=== PATIENT | male | born 1950 | race Caucasian/White ===

== ENCOUNTER 2021-10-05 08:20 | Outpatient (CLI) | payer OTHER ==
--- NOTE | 2021-10-05 15:31 | Ultrasound Report ---
PROCEDURE: Aorta Screening INDICATIONS: HISTORY OF TOBACCO USE TECHNIQUE: Real time scanning was performed of the aorta and iliac arteries, with image documentatio n. COMPARISON: None FINDINGS: Aorta: Proximal aortic diameter measures 2.7 x 2.7 cm. Mid-aorta measures 2.0 x 2.1 cm. Distal aor tic diameter is 1.8 x 1.9 cm. Iliac arteries: Right common iliac artery measures 1.2 x 1.2 cm. Left common iliac artery measures 1.2 x 1.2 cm. Miscellaneous: Mild right renal hydronephrosis. IMPRESSION: No aortic aneurysmal dilation. Mild right renal hydronephrosis. Reviewed by: Delia Blake MD on 10/05/2021 3:30 PM PDT Approved by: Delia Blake MD on 10/05/2021 3:30 PM PDT Station ID: [id number]
== END 2021-10-05 08:21 | disposition home or self-care (01) ==
LOC: DI 08:20
PROVIDERS: ATTEND Internal Medicine
DX: Z13.6 Encounter for screening for cardiovascular disorders (principal); Z87.891 Personal history of nicotine dependence; N13.30 Unspecified hydronephrosis

== ENCOUNTER 2022-10-21 12:55 | Day surgery (SDC) | payer OTHER ==
[2022-10-21] MEDS ORDERED: CEFAZOLIN 2G/50ML 0.9% NS 2 GM/50 ML BAG IV ONE (12:57)
[2022-10-21] MEDS ORDERED: LACTATED RINGERS 1,000 ML IV ONE ×2 (13:22→17:03)
[2022-10-21] MEDS ORDERED: BUPIVACAINE 0.25% PF 30 ML VIAL ONE ×2 (13:33→16:00)
[2022-10-21] MEDS ORDERED: LIDOCAINE MPF 2%-EPI 1:200000 20 ML VIAL ONE (13:33)
--- NOTE | 2022-10-21 13:51 | ANESTHESIA ---
Pre-Anesthesia VS, & Labs - Diagnosis right inguinal hernia - Procedure right hernia repair Vital Signs: Temp Pulse Resp BP Pulse Ox O2 Flow Rate 36.6 C 98 17 174/99 H 98 10/21/22 13:20 10/21/22 13:20 10/21/22 13:20 10/21/22 13:20 10/21/22 13:20 Height: 5 ft 6 in Weight (kg): 72 kg Body Mass Index: 25.6 BMI Classification: Overweight - NPO >8 hours Home Medications and Allergies Home Medications: Ambulatory Orders Tamsulosin [Flomax] 0.4 mg PO DAILY 10/19/22 Trazodone HCl 150 mg PO QPM PRN 10/19/22 hydroCHLOROthiazide [Hydrodiuril] 25 mg PO DAILY 10/19/22 Gabapentin [Neurontin] 900 mg PO DAILY 10/20/22 Tamsulosin [Flomax] 0.4 mg PO DAILY 10/19/22 Trazodone HCl 150 mg PO QPM PRN 10/19/22 hydroCHLOROthiazide [Hydrodiuril] 25 mg PO DAILY 10/19/22 Gabapentin [Neurontin] 900 mg PO DAILY 10/20/22 Allergies/Adverse Reactions: Allergies Allergy/AdvReac Type Severity Reaction Status Date / Time lisinopril AdvReac Unknown Verified 10/21/22 13:18 Anes History & Medical History - Anesthetic History Anesthesia Complications: reports: No previous complications - Medical History Cardiovascular: reports: None Pulmonary: reports: Sleep apnea, CPAP use Gastrointestinal: reports: Colon polyps, Hemorrhoids Urinary: reports: Benign prostate hypertrophy, Nocturia Musculoskeletal: reports: None Endocrine/Autoimmune: reports: None Skin: reports: None Smoking Status: Never smoker History of Cancer?: No - Surgical History General: reports: Colonoscopy, Other Eyes Ears Nose Throat (EENT): reports: Tonsil/Adenoidectomy Orthopedic: reports: Rotator cuff repair, Spine surgery Exam General: Alert, Oriented x3 Dental: WNL Mouth Opening: Greater than 4 Fingerbreadths Neck Mobility: Normal Mallampati classification: II Respiratory: Lungs clear Cardiovascular: Regular rate Plan Anesthesia Type: General, MAC, Total IV Consent for Procedure(s) Verified and Reviewed: Yes Code Status: Attempt Resuscitation ASA classification: 2-Mild systemic disease Is this case an emergency?: No
[2022-10-21] MEDS ORDERED: MORPHINE 2 MG/ML CARPUJECT IVP PRN (13:57)
[2022-10-21] MEDS ORDERED: ONDANSETRON 4 MG/2 ML VIAL IVP PRN (13:57)
[2022-10-21] MEDS ORDERED: METOCLOPRAMIDE 10 MG/2 ML VIAL IVP PRN (13:57)
[2022-10-21] MEDS ORDERED: fentaNYL 100 MCG/2 ML VIAL IVP PRN (13:57)
[2022-10-21] MEDS ORDERED: HYDROmorphone 0.5 MG/0.5 ML SYRINGE IVP PRN ×2 (13:57→17:02)
[2022-10-21] MEDS ORDERED: ATROPINE ABBOJECT 1 MG/10 ML SYRINGE IVP PRN (13:57)
[2022-10-21] MEDS ORDERED: ePHEDrine 50 MG/ML VIAL IVP PRN (13:57)
[2022-10-21] MEDS ORDERED: NALOXONE 0.4 MG/ML VIAL IVP PRN (13:57)
[2022-10-21] MEDS ORDERED: LACTATED RINGERS 1,000 ML IV SCH (14:00)
[2022-10-21] MEDS ORDERED: MIDAZOLAM 2 MG/2 ML VIAL ONE (15:13)
[2022-10-21] MEDS ORDERED: PROPOFOL 500 MG/50 ML 500 MG/50 ML VIAL ONE (15:13)
[2022-10-21] MEDS ORDERED: fentaNYL 100 MCG/2 ML VIAL ONE (15:14)
[2022-10-21] MEDS ORDERED: BUPIVACAINE 0.25% PF 30 ML VIAL SUBQ ONE ×2 (16:01)
[2022-10-21] MEDS ORDERED: LIDOCAINE-MPF 1% 30 ML VIAL SUBQ ONE ×2 (16:02)
[2022-10-21] MEDS ORDERED: ONDANSETRON 4 MG/2 ML VIAL ONE (16:44)
[2022-10-21] MEDS ORDERED: HYDROcod/ACETAM 5/325 MG TABLET PO PRN (17:02)
--- NOTE | 2022-10-21 17:08 | OPERATIVE REPORT ---
Operative Report - General Procedure Date: 10/21/22 Planned Procedure: open right inguinal hernia repair with mesh Pre-Op Diagnosis: right inguinal hernia likely indirect Procedure Performed: open right inguinal hernia repair with mesh Post Op Diagnosis: indirect inguinal hernia - Procedure Note Primary Surgeon: leela cardenas Anesthesia Technique: General LMA, Local Pathology: not sent Estimated Blood Loss (mL): 2 Drain/Tube Type: Other (none) Indications: painful hernia bulge Findings: as above Complications: none - Other Other Information/Narrative: Patient was properly identified brought to the operating room and placed in supine position. Sequential compression devices were placed. Laryngeal mask anesthesia was induced due to severe sleep apnea. He was prepped and draped in a sterile fashion and given preoperative antibiotics. Local anesthetic was given throughout the procedure. A 5 cm incision was made in the direction of Abhi's lines just cephalad of the pubic tubercle. Dissection proceeded with cutting current cautery. The superficial epigastric vein was identified clamped divided and tied with 3-0 Vicryl. Dissection proceeded down to the aponeurosis. The aponeurosis was opened in the direction of its fibers and extended to the external ring. Cord structures were mobilized and brought up. The nerves were carefully protected and preserved. Cord structures were mobilized and brought up. An indirect inguinal hernia was present. The hernia sac was mobilized off the cord structures and suture ligated with 2 O silk and further reduced. Preperitoneal fat was not present. He did have a fatty cord. The base was tied with 2 O vicryl. Polypropylene mesh was cut to size and with tails. The mesh was secured with multiple interrupted 0 Ethibond sutures. She was placed along the pubic tubercle, Michael's ligament area and along the shelving border of Poupart's ligament. Sutures were placed medially along the abdominal wall musculature and internal oblique. The medial tail of the mesh was secured to the shelving border of Poupart's ligament with 3 interrupted 0 ethibond sutures recreating the internal ring of appropriate size. An additional suture was placed in the crotch of the mesh recreating an internal ring of appropriate size. Aponeurosis was closed with a running 2-0 Vicryl suture. The opposite was closed with interrupted 3-0 Vicryl suture. Buried interrupted subdermal 3-0 Vicryl sutures were then placed. And was closed with a running 4-0 Monocryl subcuticular suture. Dressing was applied. Patient was awakened and brought to recovery in good condition.
--- NOTE | 2022-10-21 17:29 | ANESTHESIA POST OP EVALUATION ---
Anesthesia Post Eval - Post Anesthesia Eval Vitals: Last Vital Signs Temp 36.3 C L 10/21/22 17:19 Pulse 71 10/21/22 17:19 Resp 13 10/21/22 17:19 BP 134/82 H 10/21/22 17:19 Pulse Ox 99 10/21/22 17:19 O2 Flow Rate CV Function Including HR & BP: Stable Pain Control: Satisfactory Nausea & Vomiting: Negative Mental Status: Baseline Respiratory Status: Airway Patent Hydration Status: Satisfactory Anesthesia Complications: None
[2022-10-21 17:44] VITALS: BP 146/91
== END 2022-10-21 12:56 | disposition home or self-care (01) ==
LOC: SDS 12:55
PROVIDERS: ATTEND Surgery
DX: K40.90 Unilateral inguinal hernia, without obstruction or gangrene, not specified as recurrent (principal); G47.30 Sleep apnea, unspecified
CPT/HCPCS: 49505; C1781; J0690; J7120

== ENCOUNTER 2023-06-28 12:49 | Outpatient (CLI) | payer OTHER ==
--- NOTE | 2023-07-01 15:06 | MRI Report ---
PROCEDURE: CERVICAL SPINE WO INDICATIONS: CERVICAL RADICULOPATHY TECHNIQUE: Noncontrast sagittal T1 spin echo and T2 fast spin echo, sagittal STIR, foraminal oblique sagittal T2 fast spin echo, and axial gradient echo or T2 fast spin echo through the cervical spine. COMPARISON: None. FINDINGS: Image quality: Motion artifact is noted. Alignment and Curvature: There is normal bony alignment. Bone Marrow: Marrow demonstrates normal overall signal. Spinal Cord: Visualized spinal cord has normal size and signal. No cerebellar tonsillar herniation. Paraspinous Soft Tissues: No paravertebral masses. Prevertebral soft tissues are normal in thicknes s. C2-C3: Mild to moderate loss of disc height and disc signal can be seen. Moderate disc osteophyte c omplex is seen. Mild to moderate facet hypertrophy is seen. There is at least moderate bilateral neur oforaminal narrowing seen. Mild to moderate central canal narrowing is seen. C3-C4: Mild loss of disc height and disc signal are seen. Moderate disc osteophyte complex is seen. Mild to moderate facet hypertrophy is seen. There is moderate to severe bilateral neuroforaminal luis rowing. Moderate central canal narrowing is seen. Associated mass effect is seen upon the ventral spinal cord. C4-C5: Moderate loss of disc height and signal are seen. At least moderate disc osteophyte complex i s seen, which is eccentric to the left. There is a central/left disc osteophyte protrusion. Moderate facet hypertrophy is seen. There is moderate to severe bilateral neuroforaminal narrowing seen. At l east moderate central canal narrowing is seen, with associated mass effect upon the ventral spinal co rd. C5-C6: Moderate loss of disc height and signal are seen. At least moderate disc osteophyte complex i s seen, which is eccentric to the left. Uncovertebral joint hypertrophy is seen at this level. There are disc osteophyte protrusions seen within the left lateral recess and the right right lateral rece ss, left worse than right. Moderate facet hypertrophy is seen. Moderate to severe bilateral neurof oraminal narrowing can be seen. Moderate to severe central canal narrowing is seen, with associated m ass effect upon the ventral spinal cord. C6-C7: Moderate loss of disc height and signal are seen. Moderate disc osteophyte complex is seen, with a central disc osteophyte protrusion. At least moderate facet hypertrophy is seen. There is mod erate to severe bilateral neuroforaminal narrowing seen. At least moderate central canal narrowing is seen. Associated mass effect is seen upon the ventral spinal cord. C7-T1: At least moderate loss of disc height is seen. Mild to moderate disc osteophyte complex is se en. Moderate facet hypertrophy is seen. Moderate bilateral neural foraminal narrowing is seen. M ild central canal narrowing is seen. IMPRESSION: Multiple levels of significant cervical spine degenerative change can be seen, which are worst inferi veda. Reviewed by: Mat Velasquez MD on 07/01/2023 2:05 PM AKST Approved by: Mat Velasquez MD on 07/01/2023 2:05 PM AK Station ID: [id number]
== END 2023-06-28 23:59 | disposition home or self-care (01) ==
LOC: DI 12:49
PROVIDERS: ATTEND Internal Medicine
DX: M47.22 Other spondylosis with radiculopathy, cervical region (principal); M47.23 Other spondylosis with radiculopathy, cervicothoracic region